=== PATIENT | female | born 1940 | race Caucasian/White ===

== ENCOUNTER → 2017-01-27 | Outpatient (CLI) | payer MEDICARE, BC | LOC: MC.RAD 08:36 | DX: Z12.31 Encounter for screening mammogram for malignant neoplasm of breast (principal) ==

== ENCOUNTER → 2018-04-13 | Outpatient (CLI) | payer MEDICARE, BC | LOC: MC.RAD 08:40 | DX: Z12.31 Encounter for screening mammogram for malignant neoplasm of breast (principal); N63.23 Unspecified lump in the left breast, lower outer quadrant ==

== ENCOUNTER → 2018-04-18 | Outpatient (CLI) | payer MEDICARE, BC | LOC: MC.RAD 09:11 | DX: N63.23 Unspecified lump in the left breast, lower outer quadrant (principal) ==

== ENCOUNTER → 2018-05-25 | Outpatient (CLI) | payer MEDICARE, BC | LOC: COL.RAD 06:56 | DX: I67.82 Cerebral ischemia (principal) | CPT/HCPCS: A9585 ==

== ENCOUNTER → 2018-10-20 | Outpatient (CLI) | payer MEDICARE, BC | LOC: MC.RAD 08:30 | DX: N63.20 Unspecified lump in the left breast, unspecified quadrant (principal) | CPT/HCPCS: G0279 ==

== ENCOUNTER → 2019-06-18 | Outpatient (CLI) | payer MEDICARE, BC | LOC: MC.RAD 08:45 | DX: Z12.31 Encounter for screening mammogram for malignant neoplasm of breast (principal); N63.20 Unspecified lump in the left breast, unspecified quadrant ==

== ENCOUNTER → 2020-06-20 | Outpatient (CLI) | payer MEDICARE, BC | LOC: MC.RAD 09:42 | DX: Z12.31 Encounter for screening mammogram for malignant neoplasm of breast (principal) ==

== ENCOUNTER → 2021-08-13 | Outpatient (CLI) | payer MEDICARE, BC | LOC: COL.RAD 08-04 08:00 | DX: K44.9 Diaphragmatic hernia without obstruction or gangrene (principal) ==

== ENCOUNTER → 2021-08-20 | Outpatient (CLI) | payer MEDICARE, BC | LOC: MC.RAD 07-31 10:15 | DX: Z12.31 Encounter for screening mammogram for malignant neoplasm of breast (principal) ==

== ENCOUNTER → 2022-02-12 | Outpatient (CLI) | payer MEDICARE, BC | LOC: COL.RAD 02-11 09:00 | DX: I12.9 Hypertensive chronic kidney disease with stage 1 through stage 4 chronic kidney disease, or unspecified chronic kidney disease (principal); N18.32 Chronic kidney disease, stage 3b ==

== ENCOUNTER 2024-05-17 14:19 | Emergency (ER) | payer MEDICARE, BC ==
[~2024-05-17] VITALS: Ht 160 cm; Wt 56.4 kg
[2024-05-17 14:31] VITALS: TEMP 98
[2024-05-17 17:08] VITALS: BP 128/78; PULSE 75
== END 2024-05-17 17:11 | disposition home or self-care (01) ==
LOC: COL.ER 14:19
DX: S09.90XA Unspecified injury of head, initial encounter (principal); S20.211A Contusion of right front wall of thorax, initial encounter; W01.198A Fall on same level from slipping, tripping and stumbling with subsequent striking against other object, initial encounter; Y93.01 Activity, walking, marching and hiking

== ENCOUNTER 2024-06-05 16:41 | Emergency (ER) | payer MEDICARE, BC ==
[~2024-06-05] VITALS: Ht 160 cm; Wt 56.4 kg
[2024-06-05 16:54] VITALS: BP 148/72; TEMP 98.1
[2024-06-05 20:19] LABS: BASO # 0.1 K/mm3 (0.0-0.2); BASO % 0.9 % (0.0-2.0); EOS # 0.2 K/mm3 (0.0-0.7); EOS % 3.2 % (0.0-4.0); GRAN # 3.9 K/mm3 (1.4-6.5); GRAN % 57.5 % (42.2-75.2); HEMATOCRIT 37.7 % (37.0-47.0); LYMPH # 2.2 K/mm3 (1.2-3.4); MEAN CELL VOLUME 95 fl (80.0-100.0); MEAN CORPUSCULAR HEMOGLOBIN 33 pg (27-31); MEAN CORPUSCULAR HGB CONC 35 g/dl (33.0-37.0); MEAN PLATELET VOLUME 8.4 fl (7.4-10.4); MONO # 0.4 K/mm3 (0.1-0.6); MONO % 6.3 % (1.7-9.3); PLATELET COUNT 250 K/mm3 (130-400); RED BLOOD COUNT 3.99 M/mm3 (4.10-5.30); REDCELL DISTRIBUTION WIDTH-CV 11.8 % (11.5-14.5)
[2024-06-05 21:17] VITALS: PULSE 65
== END 2024-06-05 21:18 | disposition home or self-care (01) ==
LOC: COL.ER 16:41
PROVIDERS: Nurse Practitioner Primary Care
DX: M54.6 Pain in thoracic spine (principal)